=== PATIENT | female | born 1960 | race Caucasian/White ===

== ENCOUNTER → 2020-11-12 13:20 | Outpatient (CLI) | payer BC, SELFPAY ==
--- NOTE | ~2020-11-12 | CT_ITS ---
EXAMINATION:CT lung screening DATE: 11/12/2020 13:44 INDICATION: Personal history of tobacco dependence. Smoker who quit 3 years ago with 30 pack year his tory. TECHNIQUE: Computed tomography (CT) of the chest was performed without intravenous contrast. Automate d exposure control and iterative reconstruction technique were employed. The dose-length product (DLP ) was 71.45 mGy-cm. COMPARISON: Chest CT 05/19/2019 FINDINGS: There is mild emphysema. There is mild atelectasis bilaterally. A calcified left lung nodul e and calcified left hilar lymph nodes are consistent with old granulomatous disease. No pleural effu naldo. The heart size is normal. No pericardial effusion. There is moderate thoracic spondylosis. IMPRESSION: 1. Lung-RADS category 1: Negative. Continue annual screening with noncontrast low-dose chest CT in 12 months. Reviewed, dictated and finalized at location B. HEATER OPERATOR IMPRESSION: 1. Lung-RADS category 1: Negative. Continue annual screening with noncontrast l ow-dose chest CT in 12 months.
== END ==
PROVIDERS: Visit Provider Internal Medicine
DX: Z12.2 Encounter for screening for malignant neoplasm of respiratory organs (principal); Z87.891 Personal history of nicotine dependence
CPT/HCPCS: 71271

== ENCOUNTER → 2021-12-05 10:57 | Outpatient (CLI) | payer BC, SELFPAY ==
--- NOTE | ~2021-12-05 | XR_ITS ---
EXAMINATION:XR_CERV2-3V_CR DATE: 12/05/2021 11:12 INDICATION: Radiculopathy, cervical region TECHNIQUE: AP, lateral, lateral swimmers and odontoid views of the cervical spine are provided. COMPARISON: None FINDINGS: There are 2 mm of retrolisthesis of C5 on C6. The odontoid is intact. No fracture is identi fied. The vertebral body heights are maintained. There is moderate loss of intervertebral disc space height at C6-7 and mild loss of intervertebral disc space height at C5-6. Small degenerative osteophy andrea project from the anterior endplates of multiple vertebral bodies. There is moderate multilevel fa cet and uncovertebral joint osteoarthritis. Prevertebral soft tissues are normal. IMPRESSION: 1. Mild cervical spondylosis without acute findings. Reviewed, dictated and finalized at location A. FORCE ADVISOR
== END ==
PROVIDERS: PCP Internal Medicine; Visit Provider Internal Medicine
DX: M47.22 Other spondylosis with radiculopathy, cervical region (principal)
CPT/HCPCS: 72040

== ENCOUNTER → 2022-06-14 15:11 | Outpatient (CLI) | payer BC, SELFPAY ==
--- NOTE | ~2022-06-14 | XR_ITS ---
EXAM: XR knee RT 3V DATE: 06/14/2022 15:26 HISTORY: M25.569 - Pain in unspecified knee . COMPARISON: None available. FINDINGS: Normal mineralization. No fracture or dislocation. No lytic or blastic lesion. Moderate bi lateral medial joint space narrowing. Mild tricompartmental osteophytosis. No erosion or periosteal c hange. Soft tissues within normal limits. IMPRESSION: Tricompartmental osteophytosis in the bilateral knees. Reviewed, dictated and finalized at location K.
--- NOTE | ~2022-06-14 | XR_ITS ---
EXAM: XR knee RT 3V DATE: 06/14/2022 15:26 HISTORY: M25.569 - Pain in unspecified knee . COMPARISON: None available. FINDINGS: Normal mineralization. No fracture or dislocation. No lytic or blastic lesion. Moderate bi lateral medial joint space narrowing. Mild tricompartmental osteophytosis. No erosion or periosteal c hange. Soft tissues within normal limits. IMPRESSION: Tricompartmental osteophytosis in the bilateral knees. Reviewed, dictated and finalized at location K.
== END ==
PROVIDERS: PCP Internal Medicine; Visit Provider Nurse Practitioner
DX: M17.0 Bilateral primary osteoarthritis of knee (principal)
CPT/HCPCS: 73562

== ENCOUNTER → 2022-10-03 13:34 | Outpatient (CLI) | payer BC, SELFPAY ==
--- NOTE | ~2022-10-03 | XR_ITS ---
AP and lateral views of the right tibia/fibula Clinical History: Distal, anterior pain Findings: No acute fracture or dislocation is seen. Osseous alignment is anatomic. Joint spaces are p reserved without significant erosive or degenerative change. Soft tissues are unremarkable. Impression: Unremarkable right tib-fib radiographs. Reviewed, dictated and finalized at location [] TECHNOLOGY TECHNICIAN Impression: Unremarkable right tib-fib radiographs.
== END ==
PROVIDERS: PCP Internal Medicine; Visit Provider Internal Medicine
DX: M79.661 Pain in right lower leg (principal)
CPT/HCPCS: 73590

== ENCOUNTER → 2023-08-27 12:44 | Outpatient (CLI) | payer BC, SELFPAY ==
--- NOTE | ~2023-08-27 | CT_ITS ---
CT Scan of the Chest without Contrast: Clinical Indication: Lung cancer screening, personal history of nicotine dependence Technique: Contiguous sections were acquired throughout the chest without intravenous contrast. Dose reduction technique was used on this scan by utilizing automated exposure control and iterative recon struction technique. The dose-length product (DLP) was 64.49 mGy-cm. COMPARISON: 11/12/2020 Findings: There is no evidence of any significant mediastinal, hilar or axillary lymphadenopathy. The mediastin al soft tissues appear normal. There is no evidence of pleural or pericardial effusion. Stable linear left apical scarring. Stable calcified left upper lobe granuloma. No other pulmonary no dule seen. Images through the upper abdomen reveal no abnormalities. Impression: Lung RADS 2: Benign appearance. 12 month follow-up screening CT advised. Reviewed, dictated and finalized at [facility]. SFORMER ASSEMBLY SUPERVISOR Impression: Lung RADS 2: Benign appearance. 12 month follow-up screening CT advised.
== END ==
PROVIDERS: PCP Nurse Practitioner Family; Visit Provider Nurse Practitioner Family
DX: Z12.2 Encounter for screening for malignant neoplasm of respiratory organs (principal); Z87.891 Personal history of nicotine dependence
CPT/HCPCS: 71271

== ENCOUNTER → 2023-10-01 14:32 | Outpatient (CLI) | payer BC, SELFPAY ==
--- NOTE | ~2023-10-01 | DEXA_ITS ---
Bone Density Report Name: RENEE REBOLLEDO Age: 62 Sex: Female Ethnicity: White Date of : 1960 Indication: postmenopausal; screening for osteoporosis; Referring Provider: ARAVIND FLANAGAN Study: Bone densitometry was performed. Exam Date: October 01, 2023 Accession number: [id number] Bone Density: Region BMD T-score Z-score Classification AP Spine (L1, L2) 1.067 0.8 2.4 Normal Femoral Neck (Left) 0.860 0.1 1.6 Normal Total Hip (Left) 0.893 -0.4 0.8 Normal Femoral Neck (Right) 0.854 0.0 1.5 Normal Total Hip (Right) 0.826 -0.9 0.3 Normal Total Hip Mean 0.860 -0.7 0.6 Normal World Health Organization criteria for BMD impression classify patients as: Normal (T-score at or above -1.0), Osteopenia (T-score between -1.0 and -2.5), or Osteoporosis (T-score at or below -2.5). 10-year Fracture Risk: FRAX not reported because: All T-scores for Spine Total, Hip Total, Femoral Neck at or above -1.0 Previous Exams: Region Exam Age BMD T-score BMD Change BMD Change Date g/cm2 vs Baseline vs Previous AP Spine(L1, L2) 10/01/2023 62 1.067 0.8 -0.082* -0.082* 05/19/2019 58 1.148 1.5 Total Hip(Left) 10/01/2023 62 0.893 -0.4 0.025 0.025 05/19/2019 58 0.869 -0.6 Total Hip(Right) 10/01/2023 62 0.826 -0.9 0.009 0.009 05/19/2019 58 0.817 -1.0 *Denotes significance at 95% confidence level, LSC for AP Spine = 0.022 g/cm2, LSC for Total Hip = 0.027 g/cm2 Clinical Information Provided by Patient: Has used the following medications: Vitamin D Patient maximum height was 67 Menopause Age: 54 Drinks caffeinated beverages Onset of menses at age 12 Number of children 3 Impression: The patient has normal bone mass. The BMD for the AP Spine(L1, L2) decreased, changing by -0.082 since the last DXA exam. Discussion: BONE DENSITY IS ABOVE THE MINIMUM DESIRABLE LEVEL AT ALL SKELETAL SITES TESTED. This patient?s bone mineral density is above the minimum desirable level (T-score -1.0 or better) at all sites measured. The patient should follow a healthful lifestyle (good nutrition with adequate calcium and vitamin D, and appropriate weight-bearing exercise). Follow-Up: Consider repeating this study in 3 to 4 years to reassess this patient's status, or sooner if there is some new clinical indication. Reported by: SRINIVASAN on 10/01/2023 2:42:00 PM.
== END ==
PROVIDERS: PCP Nurse Practitioner Family; Visit Provider Nurse Practitioner Family
DX: Z78.0 Asymptomatic menopausal state (principal)
CPT/HCPCS: 77080

== ENCOUNTER 2024-11-27 11:56 | Outpatient (CLI) | payer BC, SELFPAY ==
--- NOTE | ~2024-11-27 | CT_ITS ---
EXAMINATION:CT lung screening DATE: 11/27/2024 12:11 INDICATION: Personal history of nicotine dependence. Smoker who quit 6 years ago with 40 pack year hi story. TECHNIQUE: Computed tomography (CT) of the chest was performed without intravenous contrast. Automate d exposure control and iterative reconstruction technique were employed. The dose-length product (DLP ) was 68.89 mGy-cm. COMPARISON: Chest CT 08/27/2023 FINDINGS: The lungs demonstrate mild atelectasis. There is stable mild scarring at left lung apex. Ca lcified left lung nodules and calcified mediastinal lymph nodes are consistent with old granulomatous disease. No pleural effusion. The heart size is normal. No pericardial effusion. Calcifications in t he spleen are consistent with old granulomatous disease. There is moderate thoracic spondylosis. IMPRESSION: 1. Lung-RADS category 2: Benign appearance or behavior. Continue annual screening with noncontrast lo w-dose chest CT in 12 months. Reviewed, dictated and finalized at location A. TH LEAD IMPRESSION: 1. Lung-RADS category 2: Benign appearance or behavior. Continue annual screeni ng with noncontrast low-dose chest CT in 12 months.
== END 2024-11-27 11:57 | disposition home or self-care (01) ==
LOC: MICIMG 11:56
PROVIDERS: PCP Nurse Practitioner Family; Visit Provider Nurse Practitioner Family
DX: Z12.2 Encounter for screening for malignant neoplasm of respiratory organs (principal); Z87.891 Personal history of nicotine dependence
CPT/HCPCS: 71271

== ENCOUNTER 2025-03-11 12:50 | Outpatient (CLI) | payer BC, SELFPAY ==
--- OUTSIDE RECORDS SUMMARY | 2025-03-11 12:58 | XMS_ITS | Data Portability ---
Author Organization [place] [address] [facility], [facility] Address [address] [place] [address] [address] [place] [address] Assessment No assessment recorded. Plan of Treatment Reminders Order Date Submit Date Provider Last Modified By Organization Details Last Modified Time Details Appointments None record ed. Lab None record ed. Referral None record ed. Procedures None record ed. Surgeries None record ed. Imaging None record ed. Medication Orders None record ed. Patient TargetsNo targets recorded. Patient Instructions Encounter Date Encounter Id Patient Instructions Last Modified By Organization Details Last Modified Time 09/27/2022 [id number] Presented to clinic to r/o oleary pain Left clinic d/t wait time, not seen by provider Raf XIONG [email or web address] Not available 09/28/2022 00:58:21 Reason for Referral None Reported. Problems Name Problem SNOMED Code Status Onset Date Resolution Date Notes Provider Name and Address Organization Details Recorded Time Hypercholestero lemia [id number] Active 2021 Jimy blanchard [facility] 2 16:30:11 Hormone replacement therapy Active 2021 Jimy blanchard [facility] 2 16:30:27 Problem Notes None recorded. Medical Equipment None Reported. Medications Name Sig Start Date Stop Date Status Note LastModified by Organization Details LastModified Time atorvasta tin 20 mg tablet TAKE 1 TABLET BY MOUTH DAILY active Not Available Not Available No t Available valacyclo vir 1 gram tablet TAKE 1 TABLET BY MOUTH EVERY DAY FOR 5 DAYS 09/27 completed Not Available Not Available Not Available acyclovir 400 mg tablet TAKE 1 TABLET BY MOUTH TWICE DAILY active Not Available Not Available No t Available gabapenti n 300 mg capsule TAKE 1 CAPSULE BY MOUTH DAILY active Not Available Not Available No t Available estradiol 0.01% (0.1 mg/gram) vaginal cream TAKE 1 GRAM VAGINALL Y TWICE A WEEK active Not Available Not Available No t Available doxycycli ne hyclate 100 mg tablet TAKE 1 TABLET BY MOUTH TWICE DAILY FOR 10 DAYS 09/27 completed Not Available Not Available Not Available Lipitor 09/27 completed Recorded 01/29/20 21 1:46PM by Dominga Leal , Not Seen Not Available Not Available Not Available fluconazo le 09/27 completed Recorded 01/29/20 21 1:47PM by Dominga Leal , Not Seen Not Available Not Available Not Available ibuprofen active Not Available Not Tia ilable Not Available gabapenti n 09/27 completed Recorded 01/29/20 21 1:47PM by Dominga eLal , Not Seen Not Available Not Available Not Available Vitals Date Recorded Body height Heart rate Respiratory rate Oxygen saturation Oxygen saturation in Arterial blood by Pulse oximetry Body temperature Systolic blood pressure Diastolic blood pressure Provider Name and Address Organization Details Last Updated DateTime 2 172.72 cm 64 /min 16 /min 99 % 99 % 97.9 [degF] 118 mm[Hg] 60 mm[Hg] Jimy York [facility] 2 16:27:42 Social History None recorded. Functional Status Question Answer Note LastModified by Organizat ion Details LastModified Time How many times per week do you consume alcohol? 1-2 times per week [email or web address] Information not available 09/27/2022 Do you use any illicit or recreational drugs? No [email or web address] Information not available 09/27/2022 Do you or have you ever used any other forms of tobacco or nicotine? No [email or web address] Information not available 09/27/2022 What is your level of alcohol consumption? Occasional [email or web address] Information not available 09/27/2022 Mental Status None recorded. Family History Nothing Reported. Medical History Condition Response High Cholesterol Y Gynecological HistoryNo gynecological history recorded. Obstetrics History GPAL:G 0 P 0 0 0 0 Past Encounters Encounter ID Performer Location Encounter Start Date Encounter Closed Date Diagnosis/Indication Diagnosis SNOMED-CT Code Diagnosis ICD10 Code Diagnosis Note [id number] Regis Romeo PA-C [facility] [address] [place] [address] 09/27/2022 16:00:39 09/27/2022 18:34:30 Health Concerns Section Related Observation LastModified by Organization Detai ls LastModified Time None Recorded Concern Status LastModified by Organization Details LastModified Time None Recorded Advance Directives Directive None Recorded Payers Insurance Date Sequence Insurance Name Policy Number Policy Anaya Covered Member ID Anaya Member ID Guarantor Name 09/28/2022 1 [facility] (PPO) [id number] Linda Dominguez [id number] Linda Dominguez 09/28/2022 1 [facility]: [employer] (PPO) Linda Dominguez [id number] Linda Dominguez OBGyn Episode No OBEpisode recorded.
--- OUTSIDE RECORDS SUMMARY | 2025-03-11 12:58 | XMS_ITS | Clinical Summary ---
Author Organization [facility] [employer] Address [address] [place] [address] Care Team Providers Care Community Health Nursing Director Name Role Phone Andre Bee MD Primary Care Provider [phone] Source Comments [facility] [employer],non-owned Affiliates and Associated Physician Practices is amultiple site organization consisting of ambulatory clinics and hospital sitesin [place], [place], [place] and [place]. This disclosure is being madepursuant to the Care Everywhere program and may not contain all information available regarding this patient. Last updated 18.[facility] [employer] Allergies Active Allergy Reactions Criticality Noted Date Comments Tetanus Antitoxin 06/18/2016 Medications * Be aware that medications may not be up to date on this document. Alwaysverify current medications with the patient. atorvastatin (LIPITOR) 10 MG tablet atorvastatin 10 mg tablet Active estradiol (ESTRACE) 0.1 MG/GM vaginal cream estradiol 0.01% (0.1 mg/gram) vaginal cream INSERT 1 GRAM VAGINALLY TWICE A WEEK Active estrogens, conjugated, (PREMARIN) 0.625 MG/GM vaginal cream Premarin 0.625 mg/gram vaginal cream Active gabapentin (NEURONTIN) 300 MG capsule gabapentin 300 mg capsule Active olopatadine 0.7 % (PAZEO) 0.7 % ophthalmic solution Pazeo 0.7 % eye drops Active Active Problems Problem Noted Date Diagnosed Date Fatigue 01/07/2021 Hypercholesterolemia 05/17/2017 Family History Medical History Relation Name Comments Diabetes Father Hypertension Father Cancer - Breast Mother Diabetes Mother Hypertension Mother Relation Name Status Comments Father Mother Social History Tobacco Use Types Packs/Day Years Used Date Smoking Tobacco: Former Cigarettes Q uit: 10/22/2015 Smokeless Tobacco: Never Alcohol Use Standard Drinks/Week Comments No 0 (1 standard drink = 0.6 oz pur e alcohol) Comments No Sex and Gender Information Value Date Recorded Sex Assigned at Not on file Legal Sex Female 11:00 AM CDT Gender Identity Not on file Sexual Orientation Not on file Last Filed Vital Signs Vital Sign Reading Time Taken Comments Blood Pressure 118/78 01/07/2021 2:43 PM CDT Pulse 95 01/07/2021 2:43 PM CDT Temperature 36.4 C (97.6 F) 01/07/2021 2:43 PM CDT Respiratory Rate 17 01/07/2021 2:43 PM CDT Oxygen Saturation - - Inhaled Oxygen Concentration - - Weight 70.3 kg (155 lb) 01/07/2021 2:43 PM CDT Height 170.2 cm (5' 7 ) 01/07/2021 2:43 PM CDT Body Mass Index 24.28 01/07/2021 2:43 PM CDT Plan of Treatment Health Maintenance Due Date Last Done Comments BONE DENSITY TESTING 1960 COLOGUARD (AGES 45-75) - COLON CA SCREENING 1960 COLON MONITORING 1960 COLONOSCOPY - COLON CA SCREENING 1960 CT COLONOGRAPHY - COLON CA SCREENING 1960 Colorectal Cancer Screening 1960 FIT - COLON CA SCREENING 1960 FLEX SIG - COLON CA SCREENING 1960 HEPATITIS C SCREENING 12/07/1976 DTAP/TDAP/TD VACCINES (1 - Tdap) 1977 PNEUMOCOCCAL VACCINE 50+ (1 of 1 - PCV) 2008 ZOSTER VACCINE (1 of 2) 2008 MAMMOGRAM 04/02/2022 04/02/2020, 01/10/2019 COVID-19 VACCINE ( - season) 2024 12/25/2020, 12/04/2020 DEPRESSION SCREENING 10/22/2024 INFLUENZA VACCINE (Season Ended) 2025 06/23/2020, 07/29/2019, 08/06/2018, Additional history exists Respiratory Syncytial Virus (RSV) Vaccine Pt: or over 60 yrs (1 - 1-dose 75+ series) 2033 HEPATITIS B VACCINE Aged Out No longe r eligible based on patient's age to complete this topic HIB VACCINE Aged Out No longer eligi ble based on patient's age to complete this topic HPV VACCINE Aged Out No longer eligi ble based on patient's age to complete this topic MENINGOCOCCAL (Group B) VACCINE SHARED DECISION-MAKING Aged Out No longer eligible based on patient's age to complete this topic MENINGOCOCCAL GROUPS A/C/Y/W VACCINE Aged Out No longer eligible based on patient's age to complete this topic Insurance ANTHEM ANTHEM ANTHEM Care Teams Community Health Nursing Director Relationship Specialty Start Date End Date Andre Bee MD [address] [place] [address] PCP - General Family Medicine 06/18/16
--- OUTSIDE RECORDS SUMMARY | 2025-03-11 12:58 | XMS_ITS | Clinical Summary ---
Author Organization [facility] Address [address] [place] [address] Care Team Providers Care Coroner'S Juror Name Role Phone Anival Tsai MD Primary Care Provider [phone] Allergies Active Allergy Reactions Criticality Noted Date Comments Tetanus Vaccines And Toxoid Unknown 10/22/18 61 Medications acyclovir (ZOVIRAX) 400 mg tablet Take 1 tablet (400 mg total) by mouth daily Active atorvastatin (LIPITOR) 20 mg tablet Take 1 tablet (20 mg total) by mouth daily Active estradioL (ESTRACE) 0.01 % (0.1 mg/gram) vaginal cream INSERT 1 GRAM VAGINALLY 3 TIMES A WEEK Active gabapentin (NEURONTIN) 300 mg capsule Take 2 capsules (600 mg total) by mouth daily Active Active Problems No known active problems Encounters Date Type Department Care Team Description 01/05/2025 12:15 PM CDT Office Visit [facility] Care at [address] [address] Jennifer Ozuna NP Acute maxillary sinusitis, recurrence not specified (Primary Dx) from Last 3 Months Social History Tobacco Use Types Packs/Day Years Used Date Smoking Tobacco: Never Assessed Comments Unknown Sex and Gender Information Value Date Recorded Sex Assigned at Not on file Legal Sex Female 1:57 AM AVIONICS TECHNICIAN Gender Identity Not on file Sexual Orientation Not on file Obstetrics History Last Filed Vital Signs Vital Sign Reading Time Taken Comments Blood Pressure 118/80 01/05/2025 12:24 PM CDT Pulse 65 01/05/2025 12:24 PM CDT Temperature 36 C (96.8 F) 01/05/2025 12:24 PM CDT Respiratory Rate 20 01/05/2025 12:24 PM CDT Oxygen Saturation 98% 01/05/2025 12:24 PM CDT Inhaled Oxygen Concentration - - Weight 68.5 kg (151 lb) 01/05/2025 12:24 PM CDT Height - - Body Mass Index - - Plan of Treatment Health Maintenance Due Date Last Done Comments Colon Cancer Screening-Colonoscopy 1960 Depression Screening 1960 Fall Risk Assessment 1960 Hepatitis C Screening 1960 Osteoporosis Screening-Bone Density Scan 1960 DTaP/Tdap/Td Vaccine (1 - Tdap) 1969 Hepatitis B Screening 1976 Pneumococcal vaccine 65+ (1 of 1 - PCV) 2008 Well Visit 65+ 2023 Influenza Vaccine (Season Ended) 2025 07/29/2019, 08/06/2018, 08/03/2017 Breast Cancer Screening-Mammogram 08/11/2025 08/11/2024, 08/07/2023, 05/30/2022, Additional history exists Zoster Vaccine Completed 03/20/2019, 12/06/2018 Procedures Procedure Name Priority Date/Time Associated Diagnosis Comments SCREENING MAMMOGRAM BILATERAL W CAROL Schedule Routine, Read Routine (OP Routine) 08/11/2024 11:40 AM CDT Screening mammogram, encounter for from Last 3 Months or Most Recently Relevant to Health Maintenance Results * Screening Mammogram Bilateral W Carol (08/11/2024 11:40 AM CDT) Anatomical Region Laterality Modality Breast Bilateral Mammography Narrative 08/12/2024 2:23 PM CDT Mammogram Technique: Bilateral Digital Breast Tomosynthesis, Bilateral C-view 2D Screening mammogram. Views obtained: bilateral craniocaudal and bilateral mediolateral oblique. Computer Aided Detection was performed. Mammogram Findings: The present examination has been compared to prior imaging studies performed at [facility] on 05/13/2021, 05/30/2022 and 08/07/2023. There are scattered areas of fibroglandular density. There is no suspicious abnormality in either breast. Impression: There is no mammographic evidence of malignancy. Annual screening mammography is recommended. OVERALL FINAL ASSESSMENT: BI-RADS CATEGORY 1: Negative. Procedure Note Nicolle Cordero MD - 08/12/2024 Mammogram Technique: Bilateral Digital Breast Tomosynthesis, Bilateral C-view 2D Screening mammogram. Views obtained: bilateral craniocaudal and bilateral mediolateral oblique. Computer Aided Detection was performed. Mammogram Findings: The present examination has been compared to prior imaging studies performed at [facility] on 05/13/2021, 05/30/2022 and 08/07/2023. There are scattered areas of fibroglandular density. There is no suspicious abnormality in either breast. Impression: There is no mammographic evidence of malignancy. Annual screening mammography is recommended. OVERALL FINAL ASSESSMENT: BI-RADS CATEGORY 1: Negative. us Self Screening Mammogram IMG MAMMO PROCEDURES Fi nal Result from Last 3 Months or Most Recently Relevant to Health Maintenance Insurance [facility]ERAL [facility] [employer]ERAL Care Teams Coroner'S Juror Relationship Specialty Start Date End Date Anival Tsai MD [address] [place] [address] PCP - General 05/13/21
--- OUTSIDE RECORDS SUMMARY | 2025-03-11 12:58 | XMS_ITS | Continuity of Care Document ---
Author Organization [facility] Address [address] [place] [address] Phone Care Team Providers Care Mild Disabilities Teacher Name Role Phone Tete Sandoval MD Unavailable Unavailable Procedures Procedure Date SCREENING COLONOSCOPY ; HIGH RISK Advance Directives Directive Yes / No Effective Date File Name No Information Encounters Encounter Description Practice Location Reason(s) For Visit Diagnoses Date Provider Providers Copied on Encounter [facility], [address], [place], [place], [id number], [place] tel:[phone] [facility]ES No Information Jaime Epstein. [address] [facility], [address], [id number], . tel:[phone] Referring Provider: Kavon Hare, [address] [place] [address], [place], [address]. tel:[phone] Family History Family Member Type Diagnosis Age At Onset No Information Payers Payer name Insurance type Covered alliance party ID Authoriza tion(s) [facility] ACCESS BL [id number] Social History Type Description Quantity Date Captured Comments Sex Female Smoking Status No Information Sexual Orientation Straight or heterosexual Gender Identity Female Chief Complaint And Reason For Visit No Information Reason For Referral Reason For Referral No Information History Of Present Illness Encounter Date Complaint History Of Prese nt Illness No Information Functional Status Date Functional Assessmen t No Information Instructions Date Instruction Additional Infor mation No Information Assessments Type Assessment Date No Information Patient Care Teams Name Effective Dates (start - stop) Status Members No Information
--- OUTSIDE RECORDS SUMMARY | 2025-03-11 12:58 | XMS_ITS | Referral Summary ---
Author Organization [facility] Address [address] [place] [address] Care Team Providers Care Skeins Yarn Examiner Name Role Phone Anival Tsai MD Primary Care Provider [phone] Encounters Date Type Department Care Team Description 01/05/2025 12:15 PM CDT Office Visit [facility] Medical Group [facility] Care at [address] [phone] Jennifer Ozuna NP Acute maxillary sinusitis, recurrence not specified (Primary Dx) from Last 3 Months Allergies Active Allergy Reactions Criticality Noted Date [...] Active Active Problems No known active problems Social History Tobacco Use Types Packs/Day Years Used Date Smoking Tobacco: Never Assessed Comments Unknown Sex and Gender Information Value Date Recorded Sex Assigned at Not on file 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 Gender Identity Not on file Sexual Orientation [...] Mass Index - - Plan of Treatment Not on file Procedures Procedure Name Priority Date/Time Associated Diagnosis Comments SCREENING MAMMOGRAM BILATERAL W JOSEPH Schedule Routine, Read Routine (OP Routine) 08/11/2024 11:40 AM CDT Screening mammogram, encounter for from Last 3 Months or Most Recently Relevant to Health Maintenance Results * Screening Mammogram Bilateral W Joseph (08/11/2024 11:40 AM CDT) Anatomical Region Laterality Modality Breast Bilateral Mammography Narrative 08/12/2024 2:23 PM CDT Mammogram Technique: Bilateral Digital Breast Tomosynthesis, Bilateral C-view 2D Screening mammogram. Views obtained: bilateral craniocaudal and bilateral mediolateral oblique. Computer Aided Detection was performed. Mammogram Findings: The present examination has been compared to prior imaging studies performed at [facility] on 05/13/2021, 05/30/2022 and 08/07/2023. There are [...] compared to prior imaging studies performed at [facility] on 05/13/2021, 05/30/2022 and 08/07/2023. There are scattered areas of fibroglandular density. There is no suspicious abnormality in either breast. Impression: There is no mammographic evidence of malignancy. Annual screening mammography is recommended. OVERALL FINAL ASSESSMENT: BI-RADS CATEGORY 1: Negative. us Self Screening Mammogram IMG MAMMO PROCEDURES Fi nal Result from Last 3 Months or Most Recently Relevant to Health Maintenance Insurance [facility] FEDERAL [facility] Care Teams Skeins Yarn Examiner Relationship Specialty Start Date End Date Anival Tsai MD [address] [place] [address] PCP - General 05/13/21
--- NOTE | 2025-03-11 14:01 | ECG_ITS ---
Test Date: 2025-03-11 14:11:29 Measurements Intervals [place] Rate: 53 P: 38 NH: 174 QRS: 60 QRSD: 82 T: 16 QT: 454 QTc: 428 Interpretive Statements SINUS BRADYCARDIA NONSPECIFIC ST AND T-WAVE ABNORMALITY ABNORMAL ECG No previous ECG available for comparison Electronically Signed On 03-11-2025 15:15:09 CDT by Osman Gutierrez M.D.
[2025-03-11 14:22] LABS: Basophils Percent Auto 0.2 % (0.2-1.2); Eosinophils Absolute Auto 0.1 K/mm3 (0-0.3); Eosinophils Percent Auto 2.3 % (0-4.4); Hematocrit 39.2 % (37.0-47.0); Hemoglobin 12.3 g/dL (12.0-15.0); Immature Granulocyte Absolute 0.02 K/mm3 (0.00-0.031); Immature Granulocyte Percent A 0.5 % (0-0.5); Lymphocytes Absolute Auto 1.49 K/mm3 (0.9-3.2); Lymphocytes Percent Auto 34.7 % (18.3-44.2); Mean Corpuscular HGB Conc 31.4 g/dl (32-36); Mean Corpuscular Hemoglobin 30.1 pg (26-34); Mean Corpuscular Volume 96.1 fl (80-100); Mean Platelet Volume 11.3 fl (7.4-10.4); Monocytes Absolute Auto 0.4 K/mm3 (0.1-0.6); Monocytes Percent Auto 8.2 % (2.6-8.5); Neutrophils Absolute Auto 2.3 K/mm3 (1.3-6.7); Neutrophils Percent Auto 54.1 % (45.5-73.1); Platelet Count Result 176 k/mm3 (150-375); Red Blood Count 4.08 M/mm3 (4.2-5.4); Red Cell Distribution Width 12.8 % (11.5-14.5); White Blood Count 4.3 K/mm3 (4.5-10.0)
[2025-03-11 14:36] LABS: Alanine Aminotransferase 23 U/L (6-35); Albumin Level 4.3 g/dL (3.5-5.1); Alkaline Phosphatase 50 U/L (38-126); Anion Gap 6 mmol/L (4-12); Aspartate Amino Transferase 31 U/L (14-36); Bilirubin,Total 0.4 mg/dL (0.2-1.3); Blood Urea Nitrogen 16 mg/dL (7-17); Calcium 9.2 mg/dL (8.4-10.2); Carbon Dioxide 28 mmol/L (22-30); Chloride 105 mmol/L (98-107); Estimated Glomerular Filt Rate > 60; Glucose 100 mg/dL (65-110); Potassium 3.7 mmol/L (3.4-5.0); Sodium 139 mmol/L (137-145)
[2025-03-11 14:57] LABS: Prothrombin Time 13.3 Seconds (11.1-14.7)
== END 2025-03-11 12:51 | disposition home or self-care (01) ==
LOC: ANHSURGERY 12:55
PROVIDERS: PCP Nurse Practitioner Family; Visit Provider Urology
DX: N81.4 Uterovaginal prolapse, unspecified (principal); E78.5 Hyperlipidemia, unspecified; Z01.818 Encounter for other preprocedural examination
CPT/HCPCS: 36415; 80053; 85025; 85610; 85730; 86850; 86900; 86901; 93005

== ENCOUNTER 2025-03-23 01:20 | Day surgery (SDC) | payer BC, SELFPAY ==
[2025-03-11 13:16] VITALS: BP 104/75; PULSE 62; RESP 16; TEMP 36.6; O2SAT 99; BMI 25.0
--- NOTE | 2025-03-11 13:33 | PC.NURSE ---
Report to the Outpatient Waiting Room, entrance under the green pavilion located off [facility], at time ___9:00AM____ on date __03/23/25____. Planned Procedure Time: ___11:00AM .? Time changes happen often and if your time is changed the preop area will call you the afternoon before. - You and your visitor will be asked to self-screen and do not enter if you have any COVID symptoms. Please call surgeon if you need to reschedule. - A mask is optional within the hospital at this time. Patients may have clear liquids (water, carbonated beverages, clear teas, apple juice) until 3 hours prior to surgery (8:00AM) with a maximum of 20 ounces. - No food from midnight until time of surgery and no smoking, or chewing tobacco (or any form of nicotine). No chewing gum, candy or mints. Take only the following medications with a SIP of water on the morning of surgery: ____NONE DO NOT STOP ANY OF YOUR OTHER PRESCRIPTION MEDICATIONS PRIOR TO SURGERY EXCEPT THE FOLLOWING Medications to discontinue per physician __HOLD ALL VITAMINS/SUPPLEMENTS 7 DAYS PRE-OP PER DR HARDING. Date to take last dose 03/15/25 Please no make-up, nail divehi, hairspray, perfume, deodorant, or body powder the day of surgery.? No jewelry (including any body piercings) or valuables the day of surgery, leave them at home.? Please take a shower or bath the night before, or the morning of, surgery with an antibacterial soap.? Wear comfortable, loose fitting clothing.? - Jewelry must be removed prior to entering the operating room.? Rings and piercings that are not removed may be cut off. - The hospital will not accept responsibility for valuables.? - Please leave all valuables, including medications, at home the day of surgery. If you are going home after surgery, a licensed driver messenger must drive you home.? - NO public transportation without another adult if you receive anesthesia. - We recommend that an adult stay with you for 24 hours following discharge. - We also recommend that you do not drive, make important decision, drink alcoholic beverages, or take any drugs that were not prescribed by your health care provider for at least 24 hours after your discharge time. Follow any additional instructions given to you from your surgeon. Telephone instructions given to ____PATIENT and asked if any additional questions and then verbalized understanding. Patient advised to call surgeon office or pre surgery nurse liaison [phone] if any additional questions.
--- NOTE | 2025-03-20 10:59 | P.HP_ITS ---
H&P: HPI History of Present Illness Date/Time: 03/20/25 10:59 Chief Complaint: POP Narrative: Note:?Shara Amezquita is a 67-year-old female who presents for a follow-up visit. She continues to experience a prolapse, which she describes as a bulge that causes an unpleasant odor. She has not had a hysterectomy and is under the care of Dr. Mckeon, her MANAGER BATTERY. Shara denies any issues with leakage when coughing or sneezing but mentions that she has difficulty fully emptying her bladder, often needing to return to the bathroom shortly after attempting to urinate. She expresses a desire to address the prolapse due to the persistent odor. She has not sexually active Review of Systems Review of Systems: All systems reviewed & are unremarkable except as noted in HPI and below PMFSH Past Medical History Medical History Screening mammogram, encounter for High cholesterol HSV-2 infection rx meds Surgical History Surgical History History of gynecological procedure (~10/22/86) cone bx/D+C/severe dysplasia History of colposcopy 2004 / Benign History of colposcopy 2019 Family History Family History Father Diabetes mellitus Hypertension Grandparent Diabetes mellitus Mother Diabetes mellitus Hypertension Social History Social History Smoking packs per day: 1 Smoking cigarettes per day: 20.0 Years smoked: 30 Smoking pack-years: 30.00 Smoking status: Former smoker Tobacco type: cigarettes Smoking end date: 04/21/17 Alcohol intake: current Drinks per week: 7 Alcohol use details: social Substance use: never Substance use type: does not use Do You Feel Safe in your Home?: Yes Lack of Transportation: No Lack of Food: Never True Current Housing: I Have Housing Concerned About Future Housing: No Difficulty Paying Gas/Electric Bills: No Difficulty Paying for Meds: No Currently Unemployed: No Education: Bachelor's Degree Difficulty w/ Childcare or Family Care: No Living arrangements: with family [facility] Occupation/Education: retired Gender identity (if verbalized by the patient): Female Sexual Orientation (if Verbalized by the Patient): Straight or Heterosexual Spiritual care concerns: No Agree to blood products: Yes Meds Home Medications and Allergies Home Medications ?Medication ?Instructions ?Recorded ?Confirmed ?Type cholecalciferol (vitamin D3) 50 50 mcg PO DAILY 04/28/20 03/12/25 History mcg (2,000 unit) capsule estradiol 0.01% (0.1 mg/gram) 1 g vaginal 3XW #42.5 grams 10/21/24 03/12/25 Rx vaginal cream acyclovir 400 mg tablet 400 mg PO DAILY #90 tabs 02/06/25 03/12/25 Rx atorvastatin 20 mg tablet See Rx Instructions .Route 02/23/25 03/12/25 Rx .COMPLEX #90 tabs ascorbic acid 30 mg-collagen, 1 tablet PO DAILY 03/11/25 03/12/25 History hydrolyzed 833.3 mg tablet (Collagen Skin Renewal) bergamot extract 500 mg capsule 500 mg PO DAILY 03/11/25 03/12/25 History ([place] Bergamot) gabapentin 300 mg capsule 600 mg PO HS 03/11/25 03/12/25 History lactobacillus combination no.4 3 3,000 mmu cells PO DAILY 03/11/25 03/12/25 History billion cell capsule (Probiotic) vitamin B complex 1 tablet PO DAILY 03/11/25 03/12/25 History Allergies Allergy/AdvReac Type Severity Reaction Status Date / Time tetanus and diphtheria Allergy Unknown Other Verified 03/11/25 13:04 toxoids Exam Narrative: The physical exam findings are as follows: Note:? -General appearance: ?No acute distress -Building nutrition: ?Well-developed, we ll-nourished -Integumentary: ?Overall skin examinatio n reveals no significant rashes -Head and neck: ?Head normocephalic atra umatic, Trachea midline, Goiter none, Eye extraocular movements intact -Chest and lung: ?Quiet and even respira tory effort without the use of accessory muscles of respiration, no cough or grunting -Breast: ?Breast exam not indicated -Cardiovascular: ?Lower extremity edema: trace, Lower extremity varicosities: none -Abdomen: ?Inspection abdomen flat, Inci sions none, Palpation soft, non-rigid, no guarding Female genitourinary: -External genitalia: Vulvar hair distrib ution hair details, Introitus no discharge, Urethral characteristics orthotopic, non-tender, no diverticulum, stress incontinence absent, mobility minimal mobility -Speculum and bimanual: Cystocele +2, Va ginal Norman 0, Rectocele minimal, Vaginal mucosa atrophic -Rectal: ?Normal anus and perineum, KRIS not indicated -Neurologic: ?General alert and oriented x3. Active movement of all 4 extremities. -Pelvic floor muscle tone: ?normal -Pelvic floor muscle tenderness: ?absent -Lymphatic: ?No visible lymphadenopathy Assessment and Plan Assessment and plan (1) Cystocele with uterine prolapse: Code(s): N81.4 - Uterovaginal prolapse, unspecified Status: Acute Assessment and Plan: -Pelvic organ prolapse PLAN: -We discussed the treatment options for pelvic organ prolapse, including observation, pelvic floor muscle exercises, physical therapy, pessary usage, and surgery, as well as each approach's specific risks and benefits. She opted for a sacral colpopexy. We specifically discussed the utilization of robotic sacral colpopexy. -She understood the risks of bleeding, infection, recurrence or prolapse, mesh exposure, damage to the bowel or urinary tract, open conversion, de tad urinary urgency, urinary retention, post-operative stress urinary incontinence, dyspareunia, back pain, diskitis, and risks of anesthesia. In addition, she was provided written information on the etiology and treatment of pelvic organ prolapse. -After an extensive discussion, she agreed to proceed with surgery. -Will arrange her hotel guest service agent Dr. Rebecca Mckeon
[2025-03-23] VITALS (10 sets, daily range): BP systolic 93–141; BP diastolic 44–77; PULSE 48–63; RESP 10–18; TEMP 36.2–36.8; O2SAT 94–100; BMI 24.7
--- OUTSIDE RECORDS SUMMARY | 2025-03-23 01:23 | XMS_ITS | Continuity of Care Document ---
Author Organization [facility] Address [address] [place] [address] Phone Care Team Providers Care Dough Scaler And Mixer Name Role Phone Tete Sandoval MD Unavailable Unavailable Procedures Procedure Date SCREENING COLONOSCOPY ; HIGH RISK Advance Directives Directive Yes / No Effective Date File Name No Information Encounters Encounter Description Practice Location Reason(s) For Visit Diagnoses Date Provider Providers Copied on Encounter [facility], [address], [place], [place], [id number], [place] tel:[phone] [facility] No Information Jaime Epstein. [address], [id number], . tel:[phone] Referring Provider: Kavon Hare, [address] [place] [address], [place], [address]. tel:[phone] Family History Family Member Type Diagnosis Age At Onset No Information Payers Payer name Insurance type Covered libertarian ID Authoriza tion(s) [facility] ACCESS BL [id number] Social History Type Description Quantity Date Captured [...]
--- OUTSIDE RECORDS SUMMARY | 2025-03-23 01:23 | XMS_ITS | Clinical Summary ---
Author Organization [facility] Address [address] [place] [address] Care Team Providers Care Western Felt Hat Blocker Name Role Phone Andre Bee MD Primary Care Provider [phone] Source Comments [facility],non-owned Affiliates and Associated Physician Practices is amultiple site organization consisting of ambulatory clinics and hospital sitesin [place], [place], [place] and [place]. This disclosure is being madepursuant to the Care Everywhere program and may not contain all information available regarding this patient. Last updated 18.[facility] Allergies Active Allergy Reactions Criticality Noted Date [...] 2:43 PM CDT Height 170.2 cm (5' 7) 01/07/2021 2:43 PM CDT Body Mass Index [...] topic Insurance ANTHEM ANTHEM ANTHEM Care Teams Western Felt Hat Blocker Relationship Specialty Start Date End Date Andre Bee MD [address] [place] [address] PCP - General Family Medicine 06/18/16
--- OUTSIDE RECORDS SUMMARY | 2025-03-23 01:23 | XMS_ITS | Clinical Summary ---
Author Organization [facility] Address [address] [place] [address] Care Team Providers Care Registered Nurse Behavioral Health Name Role Phone Anival Tsai MD Primary Care Provider [phone] Allergies Active Allergy Reactions Criticality Noted Date [...] Description 01/05/2025 12:15 PM CDT Office Visit [facility] Medical Group [facility] Care at [address] [phone] Jennifer Ozuna NP Acute maxillary sinusitis, recurrence not specified (Primary Dx) from Last 3 Months Social History Tobacco Use Types Packs/Day Years Used Date Smoking Tobacco: Never Assessed Comments Unknown Sex and Gender Information Value Date Recorded Sex Assigned at Not on file 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 [...] compared to prior imaging studies performed at [facility] on 05/13/2021, 05/30/2022 and 08/07/2023. [...] Most Recently Relevant to Health Maintenance Insurance [facility] ACCESS [facility] FEDERAL [facility] FEDERAL Care Teams Registered Nurse Behavioral Health Relationship Specialty Start Date End Date Anival Tsai MD [address] [place] [address] PCP - General 05/13/21
--- OUTSIDE RECORDS SUMMARY | 2025-03-23 01:23 | XMS_ITS | Referral Summary ---
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 [...] compared to prior imaging studies performed at [facility] on 05/13/2021, 05/30/2022 and 08/07/2023. [...] Most Recently Relevant to Health Maintenance Insurance [facility] FEDERAL [facility] Care Teams Auto Damage Trainee Relationship Specialty Start Date End Date Anival Tsai MD [address] [place] [address] PCP - General 05/13/21
--- NOTE | 2025-03-23 04:42 | WPDHPUPDATE1 ---
History and Physical Update Update Date/Time: 03/23/25 04:42 History and Physical has been reviewed, including an updated exam of the patient. There are NO changes in the patient's condition. Risks, benefits, and alternatives have been discussed and questions answered. Patient agrees to proceed with procedure.
[2025-03-23] MEDS: ACETAMINOPHEN 500 MG TABLET 1000 MG PO (09:50)
--- NOTE | 2025-03-23 09:56 | WPDANESEPPF ---
Anes - Initial Pre Proc Eval Procedure: Operation Date: 03/23/25 11:00 Proposed Procedures p Robotic Sacrocolpopexy - Julián Draper MD s Robotic Assisted Laparoscopic Supracervical Hysterectomy with Bilateral Salpingo-oophorectomy - Yg Bowman MD Date/Time: 03/23/25 09:56 Surgeon: Julián Draper MD Pre Op Diagnosis: incomplete uterine prolapse Patient Data Age: 64 Gender: F Height: 1.7 m Weight: 72.4 kg Last Vital Signs Temp 36.6 C 03/11/25 13:16 Pulse 62 03/11/25 13:16 Resp 16 03/11/25 13:16 BP 104/75 03/11/25 13:16 Pulse Ox 99 03/11/25 13:16 O2 Del Method Room Air 03/11/25 13:16 Allergies Allergy/AdvReac Type Severity Reaction Status Date / Time tetanus and diphtheria Allergy Unknown Other Verified 03/23/25 09:33 toxoids Home Medications ?Medication ?Instructions ?Recorded ?Confirmed ?Type cholecalciferol (vitamin D3) 50 50 mcg PO DAILY 04/28/20 03/23/25 History mcg (2,000 unit) capsule estradiol 0.01% (0.1 mg/gram) 1 g vaginal 3XW #42.5 grams 10/21/24 03/23/25 Rx vaginal cream acyclovir 400 mg tablet 400 mg PO DAILY #90 tabs 02/06/25 03/23/25 Rx atorvastatin 20 mg tablet See Rx Instructions .Route 02/23/25 03/23/25 Rx .COMPLEX #90 tabs ascorbic acid 30 mg-collagen, 1 tablet PO DAILY 03/11/25 03/23/25 History hydrolyzed 833.3 mg tablet (Collagen Skin Renewal) bergamot extract 500 mg capsule 500 mg PO DAILY 03/11/25 03/23/25 History ([place] Bergamot) gabapentin 300 mg capsule 600 mg PO HS 03/11/25 03/23/25 History lactobacillus combination no.4 3 3,000 mmu cells PO DAILY 03/11/25 03/23/25 History billion cell capsule (Probiotic) vitamin B complex 1 tablet PO DAILY 03/11/25 03/23/25 History Patient hx anesthesia problems: none Family hx anesthesia problems: none Results Review: All pre-operative results and documents have been reviewed as part of the pre-operative evaluation. [facility] Past Medical History Medical History Screening mammogram, encounter for High cholesterol HSV-2 infection rx meds Surgical History Surgical History History of gynecological procedure (~10/22/86) cone bx/D+C/severe dysplasia History of colposcopy 2004 / Benign History of colposcopy 2018 Family History Family History Father Diabetes mellitus Hypertension Grandparent Diabetes mellitus Mother Diabetes mellitus Hypertension Social History Social History Smoking packs per day: 1 Smoking cigarettes per day: 20.0 Years smoked: 30 Smoking pack-years: 30.00 Smoking status: Former smoker Tobacco type: cigarettes Smoking end date: 10/22/16 Alcohol intake: current Drinks per week: 4 Alcohol use details: social Substance use: never Substance use type: does not use Do You Feel Safe in your Home?: Yes Lack of Transportation: No Lack of Food: Never True Current Housing: I Have Housing Concerned About Future Housing: No Difficulty Paying Gas/Electric Bills: No Difficulty Paying for Meds: No Currently Unemployed: No Education: Bachelor's Degree Difficulty w/ Childcare or Family Care: No Living arrangements: with family Additional living arrangements comments: Occupation/Education: retired Gender identity (if verbalized by the patient): Female Sexual Orientation (if Verbalized by the Patient): Straight or Heterosexual Spiritual care concerns: No Agree to blood products: Yes Anes - Eval Final PreProcedure Day of Procedure 03/23/25 09:56 Patient weight: normal Heart: regular rate and rhythm Lungs: clear to auscultation Airway: Mallampati scale class II Neurological: alert and oriented Last oral intake: >/= 8 hours ASA classification: II Emergent: no Anesthetic plan: proceed Anesthesia type and monitoring: general ETT and standard monitoring Results Review: All pre-operative results and documents have been reviewed as part of the pre-operative evaluation. Informed Consent: The patient's anesthetic plan and its attendant risks and benefits were discussed with the patient/family/POA. Questions were solicited and answers provided to the satisfaction of the patient/family/POA.
--- NOTE | 2025-03-23 10:08 | P.HP_ITS ---
H&P: HPI History of Present Illness Date/Time: 03/23/25 10:08 Chief Complaint: POP Narrative: Note:?Linda Dominguez is a 64-year-old female who presents for a follow-up visit for evaluation of a vaginal bulge. She has a history of prolapse and was referred by her helper metal hanging. She denies stress incontinence and has not had a previous hysterectomy or prolapse repair. The prolapse has become more bothersome over time. She was originally scheduled for a colpopexy but canceled the surgery in November 2023, stating she was no longer interested in the procedure. She has had a previous cystoscopy and a urodynamics study, which was normal. Review of Systems Review of Systems: All systems reviewed & are unremarkable except as noted in HPI and below PMFSH Past Medical History Medical History Screening mammogram, encounter for High cholesterol HSV-2 infection rx meds Surgical History Surgical History History of gynecological procedure (~10/22/86) cone bx/D+C/severe dysplasia History of colposcopy 2004 / Benign History of colposcopy 2019 Family History Family History Father Diabetes mellitus Hypertension Grandparent Diabetes mellitus Mother Diabetes mellitus Hypertension Social History Social History Smoking packs per day: 1 Smoking cigarettes per day: 20.0 Years smoked: 30 Smoking pack-years: 30.00 Smoking status: Former smoker Tobacco type: cigarettes Smoking end date: 10/22/16 Alcohol intake: current Drinks per week: 4 Alcohol use details: social Substance use: never Substance use type: does not use Do You Feel Safe in your Home?: Yes Lack of Transportation: No Lack of Food: Never True Current Housing: I Have Housing Concerned About Future Housing: No Difficulty Paying Gas/Electric Bills: No Difficulty Paying for Meds: No Currently Unemployed: No Education: Bachelor's Degree Difficulty w/ Childcare or Family Care: No Living arrangements: with family Additional living arrangements comments: Occupation/Education: retired Gender identity (if verbalized by the patient): Female Sexual Orientation (if Verbalized by the Patient): Straight or Heterosexual Spiritual care concerns: No Agree to blood products: Yes Meds Home Medications and Allergies Home Medications ?Medication ?Instructions ?Recorded ?Confirmed ?Type cholecalciferol (vitamin D3) 50 50 mcg PO DAILY 04/28/20 03/23/25 History mcg (2,000 unit) capsule estradiol 0.01% (0.1 mg/gram) 1 g vaginal 3XW #42.5 grams 10/21/24 03/23/25 Rx vaginal cream acyclovir 400 mg tablet 400 mg PO DAILY #90 tabs 02/06/25 03/23/25 Rx atorvastatin 20 mg tablet See Rx Instructions .Route 02/23/25 03/23/25 Rx .COMPLEX #90 tabs ascorbic acid 30 mg-collagen, 1 tablet PO DAILY 03/11/25 03/23/25 History hydrolyzed 833.3 mg tablet (Collagen Skin Renewal) bergamot extract 500 mg capsule 500 mg PO DAILY 03/11/25 03/23/25 History ([place] Bergamot) gabapentin 300 mg capsule 600 mg PO HS 03/11/25 03/23/25 History lactobacillus combination no.4 3 3,000 mmu cells PO DAILY 03/11/25 03/23/25 History billion cell capsule (Probiotic) vitamin B complex 1 tablet PO DAILY 03/11/25 03/23/25 History Allergies Allergy/AdvReac Type Severity Reaction Status Date / Time tetanus and diphtheria Allergy Unknown Other Verified 03/23/25 09:33 toxoids Exam Narrative: The physical exam findings are as follows: Note:? - Minimal cystocele and rectocele, ?to the introitus. - The main component of her prolapse is uterine prolapse with her cervix at -1. Assessment and Plan Assessment and plan (1) Uterine prolapse: Code(s): N81.4 - Uterovaginal prolapse, unspecified Status: Acute Assessment and Plan: Note:?ASSESSMENT: - Pelvic organ prolapse, uterine prolapse. PLAN: - We discussed the treatment options for pelvic organ prolapse, including observation, pelvic floor muscle exercises, physical therapy, pessary usage, and surgery, as well as each approach's specific risks and benefits. She opted for a sacral colpopexy. We specifically discussed the utilization of robotic sacral colpopexy. - She understood the risks of bleeding, infection, recurrence or prolapse, mesh exposure, damage to the bowel or urinary tract, open conversion, de tad urinary urgency, urinary retention, post-operative stress urinary incontinence, dyspareunia, back pain, diskitis, and risks of anesthesia. In addition, she was provided written information on the etiology and treatment of pelvic organ prolapse. - After an extensive discussion, she agreed to proceed with surgery.
--- NOTE | 2025-03-23 10:10 | WPDHPUPDATE1 ---
History and Physical Update Update Date/Time: 03/23/25 10:10 History and Physical has been reviewed, including an updated exam of the patient. There are NO changes in the patient's condition. Risks, benefits, and alternatives have been discussed and questions answered. Patient agrees to proceed with procedure.
[2025-03-23 10:16] LABS: Mean Corpuscular HGB Conc 31.8 g/dl (32-36); Mean Corpuscular Hemoglobin 30.4 pg (26-34); Mean Corpuscular Volume 95.4 fl (80-100); Mean Platelet Volume 11.2 fl (7.4-10.4); Platelet Count Result 198 k/mm3 (150-375); Red Blood Count 4.61 M/mm3 (4.2-5.4); Red Cell Distribution Width 12.8 % (11.5-14.5); White Blood Count 4.1 K/mm3 (4.5-10.0)
[2025-03-23] MEDS: LACTATED RINGERS 1,000 ML 30 ML IV CONT ×2 (10:22→13:21)
[2025-03-23] MEDS: KETOROLAC 15 MG/ML VIAL (*BKC) IV PUSH ×2 (10:23→16:29)
--- NOTE | 2025-03-23 10:40 | WPDHPUPDATE1 ---
History and Physical Update Update Date/Time: 03/23/25 10:40 History and Physical has been reviewed, including an updated exam of the patient. There are NO changes in the patient's condition. Risks, benefits, and alternatives have been discussed and questions answered. Patient agrees to proceed with procedure.
[2025-03-23] MEDS: metroNIDAZOLE 500 MG/ISO 100ML 500 MG/100 ML BAG 100 MG IVPB ×2 (10:44→18:56)
[2025-03-23] MEDS: ceFAZolin 2 GM/D5W 50 ML 2 GM/50 ML BAG IVPB (10:44)
[2025-03-23] MEDS: BUPIVACAINE/EPINEPHRINE 0.5% 50 ML VIAL 20 ML INFILTRATE (11:22)
--- NOTE | 2025-03-23 11:44 | W.PM.PROC2 ---
Procedure Note - Detailed Date of Procedure 03/23/25 Pre-op Diagnosis incomplete uterine prolapse Post-op Diagnosis Same Procedure Performed 1. Supra cervical robotic hysterectomy with bilateral salpingo oophorectomy Surgeon Yg Bowman MD Anesthesia General Findings Uterus tubes ovaries without abnormality Description of Procedure Patient prepped and draped in the usual procedure. Dr. Draper placed all of trocars and instruments. Surgeon moved to the console findings were noted as above. Bilaterally the infundibulopelvic ligament cauterized and cut. Round ligament cauterized and cut bilaterally bladder flap developed without difficulty. Posterior leaf the broad ligament was then incised to skeletonize the uterine vessels. These vessels were then cauterized and cut to remove the blood supply to the uterus. Incision was then made across the cervix to separate the uterus from the remainder of the cervix. This was done without difficulty and no bleeding. Specimen was placed in Endo-Catch bag and removed. Dr. Draper then into the room to proceed with his portion of this procedure. Estimated Blood Loss 10 Drains Yes (hu) Packing No Pathology Yes Complications No immediate complications Condition Stable Disposition PACU (after remainder of procedure) [facility] Billing Surgery - Charge Forward: Surgery Billing
--- NOTE | 2025-03-23 12:26 | S_PTH ---
PATIENT: Linda Dominguez LOC: [facility] U#:[id number] AGE/SX: 64/F ROOM: RE03/23/[address]: Julián Draper MD : 1960 BED: DIS: 03/24/2025 SPEC #: [id number] RECD: 03/23/25 14:18 STATUS: MERLENE REQ #: [id number] ANGY: 03/23/25 12:[address]: Yg Bowman DEPT: [facility] Surgical RECD BY: Malissa Fuentes ENTERED: 03/23/25 14:18 SP TYPE: Surgical OTHR DR: MD Amalia Julian, WINIFRED Tissues: A - Uterus Procedures: Hematoxylin and Eosin Stain Gross and Microscopic Level 5
--- NOTE | 2025-03-23 13:12 | W.PM.PROC2 ---
Procedure Note - Detailed Date of Procedure 03/23/25 Pre-op Diagnosis incomplete uterine prolapse Post-op Diagnosis Same Procedure Performed Robotic assisted laparoscopic sacral colpopexy Cystoscopy Surgeon Julián Draper MD Anesthesia General Indications A woman with uterine prolapse without stress incontinence. She desires surgical correction. She is here for the above. She understands risks of bleeding, infection, diskitis, damage to surrounding organs, bowel injury, bowel obstruction, mesh related complications including exposure and extrusion, postoperative voiding dysfunction including incontinence and retention, need for ancillary procedures, dyspareunia, recurrence of prolapse, and other perioperative intraoperative postoperative complications. She agrees to proceed. There is no stress incontinence by history or by urodynamics. We did not perform a concomitant stress incontinence operation. She understands that stress incontinence can occur afterwards requiring a secondary procedure Findings See below Description of Procedure She was correctly identified. Informed consent obtained. She from the operating room. She was given general anesthesia. She was given appropriate perioperative antibiotics. She was placed a low lithotomy position. Pressure points were padded. A time-out performed. I marked out the skin 3 fingerbreadths cephalad to the umbilicus. I anesthetized the skin. I incised the skin. I dissected down to the fascia. I grasped the fascia with Rolando clamps. I entered the fascia sharply in a Moreno type technique. I placed sutures for later fascial closure. I placed a midline trocar. I examined the abdomen. There is no sign of any injury. Under direct vision I placed 2 additional trocars in the right upper quadrant and 2 additional trocars the left upper quadrant. She was placed in steep Trendelenburg. The robot was docked. Her medical records custodian completed their portion of the procedure. Please see that operative report for details. I then sat at the console. The Sizer in the vagina created plane on the anterior and posterior vaginal wall. I took great care not to injure the vagina, bladder, or rectum. I introduced the mesh into the abdomen. I sewed the anterior leaflet of mesh on the anterior vaginal wall. I sewed the posterior leaflet of mesh on the posterior vaginal wall. This was done with several sutures of 2 0 Everetts-Bry. I reflected the colon laterally. I opened the posterior peritoneum over the sacral promontory. I carried this into the cul-de-sac. I freed up the edges for later retroperitonealization. I located the anterior longitudinal ligament the sacrum. She had a somewhat deficient ligament. I cleaned off all fatty tissues. I then tensioned my mesh appropriately. I did a vaginal exam the bedside. I assured prolapse reduction without undue tension. I then sewed the proximal leaflet of mesh onto the anterior longitudinal ligament of the sacrum with 4 sutures of 2 0 Everetts-Bry. I did 4 sutures because the ligament was less robust than average. I then used a 2 0 Monocryl to completely and meticulously retroperitonealized all mesh. I allowed the colon to go back to its normal anatomic location. There is no sign of any impingement. The specimen was then removed. All ports removed. Fascia was tied down. Skin was closed with Monocryl and surgical glue. I then performed cystoscopy. There was no tumors or surgical artifact. There was no bladder injury. She had moderate trabeculations. Bilateral ureteral patency was documented by either seen clear yellow urine or passing a guidewire up the ureter.. There is no surgical artifact in the bladder or urethra. She was awakened and transferred to PACU in stable condition. Implants Sacral colpopexy mesh Estimated Blood Loss 10 Packing No Pathology None sent Complications No immediate complications Condition Stable Disposition PACU
--- NOTE | 2025-03-23 15:54 | ADMGEN ---
1452-This patient, Linda Dominguez, was admitted to OB 2nd Floor Room 280-00. Patient/family oriented to hospital policies and general routines including ID bracelet, bed and alarms, visiting hours, pain management, procedures, bathroom and other care routines, personal items, smoking policy, room service/diet, and visiting hours. Information on how to activate the Rapid Response Team has been discussed. Patient/Family are encouraged to report perceived risks to care and to ask questions if they do not understand what they are told or what they should do.
[2025-03-23] MEDS: KCL 20 MEQ/D5/0.45% SOD CHL 1,000 ML 100 ML IV CONT (16:16)
[2025-03-23] MEDS: ceFAZolin 1 GM/NS 50 ML 1 GM/50 ML BAG IVPB (17:35)
[2025-03-24] MEDS: KETOROLAC 15 MG/ML VIAL (*BKC) IV PUSH (01:24)
[2025-03-24] MEDS: ceFAZolin 1 GM/NS 50 ML 1 GM/50 ML BAG IVPB (01:25)
[2025-03-24 01:28] VITALS: BP 93/44; PULSE 50; RESP 16; TEMP 36.9; O2SAT 95
[2025-03-24] MEDS: metroNIDAZOLE 500 MG/ISO 100ML 500 MG/100 ML BAG 100 MG IVPB (02:54)
[2025-03-24 04:30] VITALS: BP 107/57; PULSE 57; RESP 16; TEMP 36.3; O2SAT 96
--- NOTE | 2025-03-24 07:30 | PC.NURSE ---
Per MD orders, hu was left in and bladder was filled with 400cc's of Normal saline. Hu was then removed and patient was assisted to the bathroom where she voided 350cc's. Pt assisted back to bed, pt tolerated well
[2025-03-24 08:10] VITALS: BP 105/60; PULSE 48; RESP 16; TEMP 37.1; O2SAT 98
[2025-03-24] MEDS: DOCUSATE SODIUM 100 MG CAPSULE PO (08:51)
[2025-03-24] MEDS: ACETAMINOPHEN 325 MG TABLET 650 MG PO (08:51)
[2025-03-24] MEDS: ENOXAPARIN 30 MG/0.3 ML SYRINGE SUB-Q (08:52)
== END 2025-03-24 10:10 | disposition home or self-care (01) ==
LOC: ANHSURGERY 11:30 → ANHOB2 14:51
PROVIDERS: PCP Nurse Practitioner Family; Referring Provider Obstetrics & Gynecology; Visit Provider Urology
PROC: (CPT 57425; principal; 2025-03-23 11:00)
PROC: (CPT 58542; 2025-03-23 11:00)
DX: N81.2 Incomplete uterovaginal prolapse (principal); N80.03 Adenomyosis of the uterus; N84.0 Polyp of corpus uteri; Z87.891 Personal history of nicotine dependence
CPT/HCPCS: 57425; 58542; S2900 ×2; 36415; 85027; 88307; 99199; A9270; C1781; J0690; J1100; J1171; J1200; J1650; J1836; J1885; J2003; J2250; J2371; J2405; J2704; J3010; J3480; J7040; J7120